=== PATIENT | female | born 1975 | race Two or more races ===

== ENCOUNTER 2019-05-13 06:06 | Day surgery (SDC) | payer OTHER ==
[~2019-05-13] VITALS: Ht 152.4 cm; Wt 81.6 kg
[2019-05-13] MEDS ORDERED: MIDAZOLAM 2 MG/2 ML VIAL ONE (07:20)
[2019-05-13] MEDS ORDERED: fentaNYL 0.05 MG/ML VIAL ONE (07:21)
[2019-05-13] MEDS ORDERED: LIDOCAINE 2% 100 MG/5 ML UJET TP ONE (07:21)
[2019-05-13] MEDS ORDERED: MIDAZOLAM 2 MG/2 ML VIAL IVP ONE (08:10)
[2019-05-13] MEDS ORDERED: fentaNYL 0.05 MG/ML VIAL IVP ONE (08:10)
== END 2019-05-13 09:45 | disposition home or self-care (01) ==
LOC: MDS 06:06 → MMU 06:10 → MDS 09:45
PROVIDERS: ATTEND Internal Medicine Gastroenterology
DX: Z12.11 Encounter for screening for malignant neoplasm of colon (principal); D12.0 Benign neoplasm of cecum; E11.9 Type 2 diabetes mellitus without complications; I10 Essential (primary) hypertension; M19.90 Unspecified osteoarthritis, unspecified site; Z85.41 Personal history of malignant neoplasm of cervix uteri; Z80.0 Family history of malignant neoplasm of digestive organs; Z85.038 Personal history of other malignant neoplasm of large intestine; Z85.3 Personal history of malignant neoplasm of breast; Z87.891 Personal history of nicotine dependence; Z79.4 Long term (current) use of insulin; Z79.899 Other long term (current) drug therapy
CPT/HCPCS: 45385; 81025; J2250; J3010

== ENCOUNTER 2020-05-11 09:08 | Day surgery (SDC) | payer OTHER, SELFPAY ==
[~2020-05-11] VITALS: Ht 154.9 cm; Wt 81.6 kg
[2020-05-11] MEDS ORDERED: diphenhydrAMINE 50 MG/ML VIAL ONE (12:10)
[2020-05-11] MEDS ORDERED: LIDOCAINE 2% 100 MG/5 ML UJET TP ONE ×2 (12:11→12:40)
[2020-05-11] MEDS ORDERED: MIDAZOLAM 5 MG/5 ML VIAL ONE (12:11)
[2020-05-11] MEDS ORDERED: fentaNYL citrate 0.05 MG/ML VIAL ONE (12:11)
[2020-05-11] MEDS ORDERED: MIDAZOLAM 2 MG/2 ML VIAL IVP ONE (12:40)
[2020-05-11] MEDS ORDERED: fentaNYL citrate 0.05 MG/ML VIAL IVP ONE (12:40)
== END 2020-05-11 13:25 | disposition home or self-care (01) ==
LOC: MDS 09:08 → MFCC 10:07 → MDS 13:25
PROVIDERS: ATTEND Internal Medicine Gastroenterology
DX: Z12.11 Encounter for screening for malignant neoplasm of colon (principal); Z86.010 Personal history of colon polyps; Z85.038 Personal history of other malignant neoplasm of large intestine; Z20.828 Contact with and (suspected) exposure to other viral communicable diseases
CPT/HCPCS: 45378; 81025; J2250; J3010; U0003; J1200

== ENCOUNTER 2020-06-22 08:15 | Day surgery (SDC) | payer OTHER, SELFPAY ==
[~2020-06-22] VITALS: Ht 154.9 cm; Wt 81.6 kg
[2020-06-22] MEDS ORDERED: fentaNYL citrate 0.05 MG/ML VIAL ONE (09:37)
[2020-06-22] MEDS ORDERED: diphenhydrAMINE 50 MG/ML VIAL ONE (09:37)
[2020-06-22] MEDS ORDERED: MIDAZOLAM 5 MG/5 ML VIAL ONE (09:38)
[2020-06-22] MEDS ORDERED: LIDOCAINE 2% 100 MG/5 ML UJET TP ONE (09:38)
[2020-06-22] MEDS ORDERED: MIDAZOLAM 2 MG/2 ML VIAL IVP ONE (10:55)
[2020-06-22] MEDS ORDERED: fentaNYL citrate 0.05 MG/ML VIAL IVP ONE (10:55)
== END 2020-06-22 11:23 | disposition home or self-care (01) ==
LOC: MDS 08:15 → MMU 08:16 → MDS 11:23
PROVIDERS: ATTEND Internal Medicine Gastroenterology
DX: Z12.11 Encounter for screening for malignant neoplasm of colon (principal); K63.5 Polyp of colon; C80.1 Malignant (primary) neoplasm, unspecified; K57.30 Diverticulosis of large intestine without perforation or abscess without bleeding; I10 Essential (primary) hypertension; E11.9 Type 2 diabetes mellitus without complications; M19.90 Unspecified osteoarthritis, unspecified site; Z86.010 Personal history of colon polyps; Z87.891 Personal history of nicotine dependence; Z20.828 Contact with and (suspected) exposure to other viral communicable diseases
CPT/HCPCS: 45380; 45385; J2250; J3010; U0003; J1200